=== PATIENT | female | born 2005 | race Caucasian/White ===

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

== ENCOUNTER 2024-02-27 15:56 | Emergency (ER) | payer MEDICAID ==
[2024-02-27 16:08] VITALS: TEMP 97.1
--- NOTE | 2024-02-27 16:41 | ERPHSYRPT ---
- History of Present Illness Time Seen by Provider: 02/27/24 16:38 Historian: patient Exam Limitations: no limitations Patient Subjective Stated Complaint: Pt states "I was at work and I doubled over in pain. I have pain in my right upper belly." Triage Nursing Assessment: Pt presnted alert and oriented X 3, skin wpd. Pt ambulates with an upright steady gait, able to speak in clear full sentences. PT resting comfortably on the bed. Physician History: 18-year-old female presents to our ED for evaluation of right upper quadrant pain. Patient states she developed right upper quadrant pain while at work. Pain described as an ache that was localized. Pain tends to involve the epigastric area as well. No trauma no fever. Gallbladder intact. No history of the same. No nausea no vomiting no diarrhea no rash. Patient otherwise feels well. Patient states she has breast-feeds and will only take Tylenol for pain control. Patient voices no other complaints or concerns at this time. Portions of this note were created with voice recognition technology. There may be grammatical, spelling, punctuation or sound alike errors Timing/Duration: today Activities at Onset: none Quality: aching Abdominal Pain Onset Location: RUQ Pain Radiation: no radiation Severity of Pain-Max: moderate Severity of Pain-Current: moderate Modifying Factors: Improves With: nothing Associated Symptoms: denies symptoms Previous symptoms: no prior history, same symptoms as today Allergies/Adverse Reactions: No Known Drug Allergies Allergy (Verified 12/02/23 08:08) Home Medications: Pnv No.103/Folic/Om3s/Fish Oil [ Gummies] 1 each PO DAILY 12/29/23 [History] Hx Tetanus, Diphtheria Vaccination/Date Given: Yes Hx Influenza Vaccination/Date Given: No Hx Pneumococcal Vaccination/Date Given: No Travel Risk - International Travel Have you traveled outside of the country in past 3 weeks: No - Emerging Infectious Disease Are you exhibiting symptoms associated with any current EIDs: No - Review of Systems Constitutional: No Symptoms, No Fever, No Chills Eyes: No Symptoms Ears, Nose, & Throat: No Symptoms Respiratory: No Symptoms, No Cough, No Dyspnea Cardiac: No Symptoms, No Chest Pain, No Edema, No Syncope Abdominal/Gastrointestinal: No Symptoms, No Abdominal Pain, No Nausea, No Vomiting, No Diarrhea Genitourinary Symptoms: No Symptoms, No Dysuria Musculoskeletal: No Symptoms, No Back Pain, No Neck Pain Skin: No Symptoms, No Rash Neurological: No Symptoms, No Dizziness, No Focal Weakness, No Sensory Changes Psychological: No Symptoms Endocrine: No Symptoms Hematologic/Lymphatic: No Symptoms Immunological/Allergic: No Symptoms All Other Systems: Reviewed and Negative - Past Medical History Pertinent Past Medical History: Yes Neurological History: No Pertinent History ENT History: No Pertinent History Cardiac History: No Pertinent History Respiratory History: No Pertinent History Endocrine Medical History: No Pertinent History Musculoskeletal History: No Pertinent History GI Medical History: GERD History: Other Psycho-Social History: Depression Female Reproductive Disorders: No Pertinent History Other Medical History: UTI, yeast infections FREQUENTLY. dEPRESSION WITH THIS PRGNANCY - Past Surgical History Past Surgical History: Yes Neuro Surgical History: No Pertinent History Cardiac: No Pertinent History Gastrointestinal: No Pertinent History Genitourinary: No Pertinent History Musculoskeletal: No Pertinent History Female Surgical History: No Pertinent History Other Surgical History: upper endoscopy - Female History Hx Last Menstrual Period: unknown Hx Now: No - Social History Smoking Status: Never smoker Exposure to second hand smoke: No Drug Use: none Patient Lives Alone: No - Social Determinants of Health Will the patient participate in the screening: Yes Do you worry about a steady place to live?: No Do you have any problems with any of the following?: No known problems In the past 12 months,have you had to go without utilities?: No Transportation Issues: No Has anyone in your support network made you feel unsafe?: No Have you or anyone in your house had to go without enough: No - Nursing Vital Signs Nursing Vital Signs: Initial Vital Signs Temperature 97.1 F 02/27/24 16:04 Pulse Rate 96 H 02/27/24 16:04 Respiratory Rate 20 02/27/24 16:04 Blood Pressure 130/85 02/27/24 16:04 O2 Sat by Pulse Oximetry 99 02/27/24 16:04 Pain Scale Pain Intensity 0 - Physical Exam General Appearance: no apparent distress, alert Eye Exam: PERRL/EOMI, eyes nml inspection Ears, Nose, Throat Exam: normal ENT inspection, pharynx normal, moist mucous membranes Neck Exam: normal inspection, non-tender, supple, full range of motion Respiratory Exam: normal breath sounds, lungs clear, airway intact, No respiratory distress Cardiovascular Exam: regular rate/rhythm, normal heart sounds, normal peripheral pulses Gastrointestinal/Abdomen Exam: soft, tenderness (Right upper quadrant tenderness palpation. Epigastric tenderness), No mass Back Exam: normal inspection, normal range of motion, No CVA tenderness, No vertebral tenderness Extremity Exam: normal inspection, normal range of motion, pelvis stable Neurologic Exam: alert, oriented x 3, cooperative, normal mood/affect, sensation nml, No motor deficits Skin Exam: normal color, warm, dry Lymphatic Exam: No adenopathy SpO2 Interpretation: normal SpO2: 99 O2 Delivery: Room Air - Course Nursing assessment & vital signs reviewed: Yes - Radiology Ultrasound Exam Gallbladder Ultrasound: gall bladder stones (Normal pancreas normal hepatic vein normal liver common bile duct measures 0.4 cm) Ordered Tests: Active Orders 24 hr Category Date Time Status IV Insertion STAT Care 02/27/24 16:33 Active ABDOMEN AND PELVIS W/0 CONTRAS [CT] Stat Exams 02/27/24 16:34 Taken GALLBLADDER [US] Stat Exams 02/27/24 16:33 Taken CBC W DIFF Stat Lab 02/27/24 16:45 Completed CMP Stat Lab 02/27/24 16:45 Completed HCG QUALITATIVE, URINE Stat Lab 02/27/24 16:08 Completed LIPASE Stat Lab 02/27/24 16:45 Completed UA W/RFX UR CULTURE Stat Lab 02/27/24 16:08 Completed Medication Summary Generic Name Dose Route Start Last Admin Trade Name Freq PRN Reason Stop Dose Admin Hydrocodone Bitart/Acetaminophen 4 tab 02/27/24 19:46 Hydrocodone/Apap 5/325 1 Tab Tablet PO 03/03/24 19:45 Q4H PRN PRN PAIN Sodium Chloride 1,000 mls @ 100 mls/hr 02/27/24 16:45 02/27/24 17:08 Sodium Chloride 0.9% 1000 Ml IV 03/28/24 16:44 100 mls/hr .Q10H CHAS Administration Discontinued Medications Generic Name Dose Route Start Last Admin Trade Name Freq PRN Reason Stop Dose Admin Acetaminophen 975 mg 02/27/24 16:39 02/27/24 17:07 Acetaminophen 325 Mg Tablet PO 02/27/24 16:40 975 mg STAT ONE Administration Acetaminophen Confirm 02/27/24 17:04 Acetaminophen 325 Mg Tablet Administered 02/27/24 17:05 Dose 975 mg .ROUTE .STK-MED ONE Amoxicillin/Clavulanate Potassium 875 mg 02/27/24 17:58 02/27/24 18:08 Amox Tr/Potassium Clavulanate 875 Mg Tablet PO 02/27/24 17:59 Not Given STAT ONE Lab/Rad Data: Laboratory Result Diagrams 02/27/24 16:45 02/27/24 16:45 Laboratory Results 02/27/24 02/27/24 02/27/24 Range/Units 16:45 16:45 16:08 WBC 9.2 (3.98-10.04) x10^3/uL RBC 4.86 (3.93-5.22) x10^6/uL Hgb 12.7 (11.2-15.7) g/dL Hct 40.2 (34.1-44.9) % MCV 82.7 (79.4-94.8) fL MCH 26.1 (25.6-32.2) pg MCHC 31.6 L (32.2-35.5) g/dL RDW 17.8 H (11.7-14.4) % Plt Count 308 (182-369) x10^3/uL MPV 9.7 (9.4-12.3) fL Gran % 69.6 (34.0-71.1) % Immature Gran % (Auto) 0.4 (0.001-0.429) % Nucleat RBC Rel Count 0.0 (0.00-0.2) % Eos # (Auto) 0.15 (0.04-0.36) x10^3/uL Immature Gran # (Auto) 0.04 H (0.001-0.031) x10^3u/L Absolute Lymphs (auto) 2.04 (1.18-3.74) x10^3/uL Absolute Monos (auto) 0.54 (0.24-0.86) x10^3/uL Absolute Nucleated RBC 0.00 (0.00-0.012) x10^3u/L Lymphocytes % 22.1 (19.3-51.7) % Monocytes % 5.9 (4.7-12.5) % Eosinophils % 1.6 (0.7-5.8) % Basophils % 0.4 (0.1-1.2) % Absolute Granulocytes 6.40 H (1.56-6.13) x10^3/uL Basophils # 0.04 (0.01-0.08) x10^3/uL Sodium 139 (135-145) mmol/L Potassium 3.7 (3.5-5.1) mmol/L Chloride 100 (98-107) mmol/L Carbon Dioxide 32 H (22-30) mmol/L Anion Gap 10.8 (5-15) MEQ/L BUN 10 (7-17) mg/dL Creatinine 0.64 (0.52-1.04) mg/dL Estimated GFR 130.5 ML/MIN Glucose 91 (74-106) mg/dL Calcium 9.7 (8.4-10.2) mg/dL Total Bilirubin 0.40 (0.2-1.3) mg/dL AST 40 H (14-36) U/L ALT 10 (0-35) U/L Alkaline Phosphatase 85 (38-126) U/L Serum Total Protein 7.8 (6.3-8.2) g/dL Albumin 4.5 (3.5-5.0) g/dL Lipase 81 (23-300) U/L Urine Color (Yellow) Urine Appearance (Clear) Urine pH (4.6-8.0) Ur Specific Dietrich (1.005-1.030) Urine Protein (Negative) Urine Glucose (UA) (Negative) mg/dL Urine Ketones (Negative) Urine Blood (Negative) Urine Nitrite (Negative) Urine Bilirubin (Negative) Urine Urobilinogen (0.2) mg/dL Ur Leukocyte Esterase (Negative) U Hyaline Cast (Auto) (0-2) /LPF Urine Microscopic RBC (0-5) /HPF Urine Microscopic WBC (0-5) /HPF Ur Epithelial Cells (None Seen) /HPF Urine Bacteria (None Seen) /HPF Urine Culture Reflexed (NO) Urine HCG, Qual NEGATIVE (NEGATIVE) 02/27/24 Range/Units 16:08 WBC (3.98-10.04) x10^3/uL RBC (3.93-5.22) x10^6/uL Hgb (11.2-15.7) g/dL Hct (34.1-44.9) % MCV (79.4-94.8) fL MCH (25.6-32.2) pg MCHC (32.2-35.5) g/dL RDW (11.7-14.4) % Plt Count (182-369) x10^3/uL MPV (9.4-12.3) fL Gran % (34.0-71.1) % Immature Gran % (Auto) (0.001-0.429) % Nucleat RBC Rel Count (0.00-0.2) % Eos # (Auto) (0.04-0.36) x10^3/uL Immature Gran # (Auto) (0.001-0.031) x10^3u/L Absolute Lymphs (auto) (1.18-3.74) x10^3/uL Absolute Monos (auto) (0.24-0.86) x10^3/uL Absolute Nucleated RBC (0.00-0.012) x10^3u/L Lymphocytes % (19.3-51.7) % Monocytes % (4.7-12.5) % Eosinophils % (0.7-5.8) % Basophils % (0.1-1.2) % Absolute Granulocytes (1.56-6.13) x10^3/uL Basophils # (0.01-0.08) x10^3/uL Sodium (135-145) mmol/L Potassium (3.5-5.1) mmol/L Chloride (98-107) mmol/L Carbon Dioxide (22-30) mmol/L Anion Gap (5-15) MEQ/L BUN (7-17) mg/dL Creatinine (0.52-1.04) mg/dL Estimated GFR ML/MIN Glucose (74-106) mg/dL Calcium (8.4-10.2) mg/dL Total Bilirubin (0.2-1.3) mg/dL AST (14-36) U/L ALT (0-35) U/L Alkaline Phosphatase (38-126) U/L Serum Total Protein (6.3-8.2) g/dL Albumin (3.5-5.0) g/dL Lipase (23-300) U/L Urine Color Yellow (Yellow) Urine Appearance Clear (Clear) Urine pH 6.5 (4.6-8.0) Ur Specific Dietrich <=1.005 (1.005-1.030) Urine Protein Negative (Negative) Urine Glucose (UA) Negative (Negative) mg/dL Urine Ketones Negative (Negative) Urine Blood Negative (Negative) Urine Nitrite Negative (Negative) Urine Bilirubin Negative (Negative) Urine Urobilinogen 0.2 (0.2) mg/dL Ur Leukocyte Esterase Negative (Negative) U Hyaline Cast (Auto) NONE SEEN (0-2) /LPF Urine Microscopic RBC 0-2 (0-5) /HPF Urine Microscopic WBC 0-2 (0-5) /HPF Ur Epithelial Cells None Seen (None Seen) /HPF Urine Bacteria None Seen (None Seen) /HPF Urine Culture Reflexed NO (NO) Urine HCG, Qual (NEGATIVE) - Progress Progress: improved Progress Note: Patient is a 18-year-old female presents to our emergency department for evalu ation of epigastric pain right upper quadrant pain. Physical exam significant for right upper quadrant tenderness. Right upper quadrant ultrasound reveals cholelithiasis. No cholecystitis. Lipase normal. CT abdomen pelvis shows fecal stasis otherwise no acute findings. Patient's pain is well-controlled. Patient discharged home with 4 Whitakers tabs. Prescription for Whitakers and Toradol forwarded to patient's pharmacy. Patient given a referral to general surgery. Patient will follow-up tomorrow. No indication for further workup. Patient breast-feeds understands she cannot breast-feed while on or having taken Whitakers. Patient that she is ready for discharge. She voices no other complaints or concerns at this time. Portions of this note were created with voice recognition technology. There may be grammatical, spelling, punctuation or sound alike errors Complexity of problem addressed is moderate acute complicated. No critical care time. Complex of data reviewed and analyzed is moderate. Test ordered chest reviewed results analyzed and correlated clinically with history and physical exam. Risk of complication or risk of morbidity/mortality of patient management is low. Vital stable. Time spent to discharge patient is approximately 20 minutes. Plan of care established for shared decision making. No social determinants of health present impede follow-up. Portions of this note were created with voice recognition technology. There may be grammatical, spelling, punctuation or sound alike errors 02/27/24 19:56 Counseled pt/family regarding: lab results, diagnosis, need for follow-up, rad results - Departure Departure Disposition: Home Clinical Impression: Biliary colic, Gallstones, Fecal stasis Condition: Stable Critical Care Time: No Referrals: TANMAY AUSTIN MD [Primary Care Provider] - Follow up/PCP as directed RUTHIE HENDERSON [ACTIVE STAFF] - Follow up/PCP as directed Additional Instructions: Discharge/Care Plan REGINALDO LIVINGSTON was seen on 02/27/24 in the Emergency Room. The patient was counseled regarding Diagnosis,Lab results, Imaging studies, need for follow up and when to return to the Emergency Room. Prescriptions given: Discharge Note I have spoken with the patient and/or caregivers. I have explained the patient's condition, diagnosis and treatment plan based on the information available to me at this time. I have answered the patient's and/or caregiver's questions and addressed any concerns. The patient and/or caregivers have as good understanding of the patient's diagnosis, condition and treatment plan as can be expected at this point. The vital signs have been stable. The patient's condition is stable and appropriate for discharge from the emergency department. The patient will pursue further outpatient evaluation with the primary care physician or other designated or consulting physician as outlined in the discharge instructions. The patient and/or caregivers are agreeable to this plan of care and follow-up instructions have been explained in detail. The patient and/or caregivers have received these instruction. The patient/and or caregivers are aware that any significant change in condition or worsening of symptoms should prompt an immediate return to this or the closest emergency department or call 911. Prescriptions: Hydrocodone/APAP 5/325 [Whitakers 5/325 mg] 1 each PO Q6H PRN PRN #10 tablet MDD 4 PRN Reason: Pain Ketorolac Trometh 10 mg Tab [TORAdol 10 MG TABLET] 10 mg PO TID 5 Days #15 tablet
[2024-02-27 16:52] LABS: BASOPHIL % 0.4 % (0.1-1.2); Basophil (Absolute #) 0.04 x10^3/uL (0.01-0.08); Eosinophil % 1.6 % (0.7-5.8); Eosinophil (Absolute #) 0.15 x10^3/uL (0.04-0.36); Hematocrit 40.2 % (34.1-44.9); Hemoglobin 12.7 g/dL (11.2-15.7); IMMATURE GRAN # 0.04 x10^3u/L (0.001-0.031); IMMATURE GRAN % 0.4 % (0.001-0.429); Lymphocyte (Absolute #) 2.04 x10^3/uL (1.18-3.74); Lymphocytes % 22.1 % (19.3-51.7); Mean Cell Volume 82.7 fL (79.4-94.8); Mean Corpuscular Hemoglobin 26.1 pg (25.6-32.2); Mean Corpuscular Hgb Concent. 31.6 g/dL (32.2-35.5); Mean Platelet Volume 9.7 fL (9.4-12.3); Monocyte (Absolute #) 0.54 x10^3/uL (0.24-0.86); Monocytes % 5.9 % (4.7-12.5); Neutrophil % 69.6 % (34.0-71.1); Platelet Count 308 x10^3/uL (182-369); Red Blood Count 4.86 x10^6/uL (3.93-5.22); Red Cell Distribution Width 17.8 % (11.7-14.4); White Blood Count 9.2 x10^3/uL (3.98-10.04)
[2024-02-27 16:57] LABS: HCG URINE TEST NEGATIVE (NEGATIVE)
[2024-02-27 17:00] LABS: Appearance Clear (Clear); Bacteria None Seen /HPF (None Seen); Bilirubin Negative (Negative); Blood Negative (Negative); Epithelial Cells None Seen /HPF (None Seen); Glucose, Urine Negative (Negative); Hyaline Casts NONE SEEN /LPF (0-2); Ketones Negative (Negative); Leukocyte Esterase Negative (Negative); Nitrite Negative (Negative); Ph 6.5 (4.6-8.0); Protein,Urine Dip Negative (Negative); RBC 0-2 /HPF (0-5); Specific Gravity <=1.005 (1.005-1.030); Urobilinogen 0.2 mg/dL (0.2); WBC 0-2 /HPF (0-5)
[2024-02-27 17:01] LABS: ADD URINE CULTURE? NO (NO)
[2024-02-27] MEDS ORDERED: Sodium Chloride 0.9% 1000 ML 1,000 ML ONE (17:04)
[2024-02-27] MEDS ORDERED: TYLENOL 325 MG ONE (17:04)
[2024-02-27 17:06] LABS: ALBUMIN 4.5 g/dL (3.5-5.0); ANION GAP 10.8 MEQ/L (5-15); BILIRUBIN,TOTAL 0.4 mg/dL (0.2-1.3); Calcium 9.7 mg/dL (8.4-10.2); Creatinine 1 0.64 mg/dL (0.52-1.04); EST GLOMERULAR FILTRATION RATE 130.5 ML/MIN; Potassium 3.7 mmol/L (3.5-5.1); Total Protein 7.8 g/dL (6.3-8.2)
[2024-02-27] MEDS: TYLENOL 325 MG PO ONE (17:07)
[2024-02-27] MEDS: Sodium Chloride 0.9% 1000 ML 1,000 ML IV SCH (17:08)
[2024-02-27] MEDS: Augmentin 875-125 Tablet PO ONE (18:08)
[2024-02-27 19:35] VITALS: BP 120/69; PULSE 95; RESP 16
[2024-02-27 19:53] VITALS: O2SAT 99
[2024-02-27] MEDS ORDERED: NORCO 5/325 MG ONE (20:08)
[2024-02-27] MEDS: NORCO 5/325 MG PO PRN (20:09)
--- NOTE | 2024-02-27 22:15 | XRAY ---
Indication: Right upper quadrant pain. Multiple contiguous axial images obtained through the abdomen and pelvis without contrast. Comparison: February 28, 2023 Lung bases clear. Heart not enlarged. Noncontrasted stomach and bowel loops appear nonobstructed with normal appendix. There is now moderate diffuse scattered colonic fecal debris throughout. No free fluid/air. Remaining liver, gallbladder, pancreas, spleen, adrenal glands, kidneys, ureters, bladder, uterus, and aorta are unremarkable for noncontrast exam. Osseous structures intact. Impression: Moderate diffuse fecal stasis. Remaining CT abdomen/pelvis without contrast exam is negative.
--- NOTE | 2024-02-27 22:39 | XRAY ---
Indication: Pain. Two-dimensional gallbladder sonogram performed. Comparison: None Visualized gallbladder normally distended with tiny gallstones/gravel in neck of gallbladder. No abnormal gallbladder wall thickening or pericholecystic fluid. Common bile duct measures 4.2 mm. No intrahepatic biliary distention. Remaining visualized liver, pancreas, and right kidney are sonographically unremarkable. Impression: Cholelithiasis without cholecystitis. Comment: Preliminary report was given.
== END 2024-02-27 20:24 | disposition home or self-care (01) ==
LOC: ED 15:56
DX: K80.20 Calculus of gallbladder without cholecystitis without obstruction (principal); R10.11 Right upper quadrant pain; K56.41 Fecal impaction
CPT/HCPCS: 36000; 36415; 74176; 76705; 80053; 81001; 81025; 83690; 85025; 99284; A9270-GY

== ENCOUNTER 2025-02-26 04:03 | Inpatient (IN) | payer OTHER ==
[2025-02-26 04:36] LABS: Glucose, Urine Negative (Negative); Protein,Urine Dip Negative (Negative); RBC 0-2 /HPF (0-5); WBC 0-2 /HPF (0-5)
[2025-02-26 04:37] LABS: AMNISURE TEST RESULTS POSITIVE (NEGATIVE)
[2025-02-26] MEDS ORDERED: Zofran 4 MG/2 ML VIAL IV PRN (04:44)
[2025-02-26] MEDS ORDERED: TYLENOL EXTRA STRENGTH 500 MG PO PRN (04:44)
[2025-02-26] MEDS ORDERED: XYLOCAINE 1% HCL 20 ML MDV IJ PRN (04:44)
[2025-02-26 04:45] LABS: Amphetamine,Urine NEGATIVE (NEGATIVE); Barbiturate,Urine NEGATIVE (NEGATIVE); Benzodiazepine,Urine NEGATIVE (NEGATIVE); Cocaine,Urine NEGATIVE (NEGATIVE); Methadone,Urine NEGATIVE (NEGATIVE); Opiate,Urine NEGATIVE (NEGATIVE); PCP,Urine NEGATIVE (NEGATIVE); THC,Urine NEGATIVE (NEGATIVE)
[2025-02-26 05:06] LABS: BASOPHIL % 0.6 % (0.1-1.2); Basophil (Absolute #) 0.07 x10^3/uL (0.01-0.08); Eosinophil (Absolute #) 0.49 x10^3/uL (0.04-0.36); Hematocrit 35.3 % (34.1-44.9); Hemoglobin 11.4 g/dL (11.2-15.7); IMMATURE GRAN # 0.06 x10^3u/L (0.001-0.031); IMMATURE GRAN % 0.5 % (0.001-0.429); Lymphocyte (Absolute #) 2.88 x10^3/uL (1.18-3.74); Mean Corpuscular Hemoglobin 27.5 pg (25.6-32.2); Mean Corpuscular Hgb Concent. 32.3 g/dL (32.2-35.5); Monocyte (Absolute #) 0.85 x10^3/uL (0.24-0.86); NUCLEATED RBC # 0.00 x10^3u/L (0.00-0.012); NUCLEATED RBC % 0.0 % (0.00-0.2); Platelet Count 232 x10^3/uL (182-369); Red Blood Count 4.15 x10^6/uL (3.93-5.22); White Blood Count 11.7 x10^3/uL (3.98-10.04)
[2025-02-26 05:44] LABS: ABO TYPING AB; RH TYPING POSITIVE
[2025-02-26] MEDS ORDERED: Lactated Ringers 1,000 ML IV ONE ×2 (06:45→07:51)
[2025-02-26] MEDS ORDERED: PITOCIN 30 UNITS/ LR 500 ML 500 ML IV ONE (06:45)
[2025-02-26] MEDS: Lactated Ringers 1,000 ML IV SCH (06:49)
[2025-02-26] MEDS: PITOCIN 30 UNITS/ LR 500 ML 30 UNITS/500 ML PLAST..BAG IV SCH (06:50)
[2025-02-26] MEDS ORDERED: Ephedrine Sulfate 50 MG/ML IV PRN (07:51)
[2025-02-26] MEDS: FENTANYL 2 MCG-BUPIV 0.125%-NS 250 ML Epidur 250 ML EPIDURAL SCH (07:58)
[2025-02-26 13:53] LABS: Glucose, Urine Negative (Negative); Protein,Urine Dip Negative (Negative); RBC 0-2 /HPF (0-5); WBC 0-2 /HPF (0-5)
[2025-02-26] MEDS ORDERED: CORTISONE 1% CREAM TP PRN (15:46)
[2025-02-26] MEDS ORDERED: Anucort-HC SUPPOSITORY PR PRN (15:46)
[2025-02-26] MEDS ORDERED: TUCKS TP PRN (15:46)
[2025-02-26] MEDS ORDERED: Dulcolax 10 MG SUPP PR PRN (15:46)
[2025-02-26] MEDS ORDERED: Mylicon 80MG PO PRN (15:46)
[2025-02-26] MEDS ORDERED: Dermoplast Spray ONE (21:25)
[2025-02-26] MEDS ORDERED: Docusate Sodium 100 MG ONE (21:25)
[2025-02-26] MEDS: Docusate Sodium 100 MG PO SCH (21:26)
[2025-02-26] MEDS: Dermoplast Spray TP PRN (21:26)
[2025-02-26] MEDS ORDERED: MOTRIN 400 MG ONE (22:56)
[2025-02-26] MEDS: MOTRIN 400 MG PO PRN (22:57)
[2025-02-27 05:56] LABS: BASOPHIL % 0.6 % (0.1-1.2); Basophil (Absolute #) 0.09 x10^3/uL (0.01-0.08); Eosinophil (Absolute #) 0.51 x10^3/uL (0.04-0.36); Hematocrit 35.5 % (34.1-44.9); Hemoglobin 11.2 g/dL (11.2-15.7); IMMATURE GRAN # 0.06 x10^3u/L (0.001-0.031); IMMATURE GRAN % 0.4 % (0.001-0.429); Lymphocyte (Absolute #) 2.94 x10^3/uL (1.18-3.74); Mean Corpuscular Hemoglobin 26.8 pg (25.6-32.2); Mean Corpuscular Hgb Concent. 31.5 g/dL (32.2-35.5); Monocyte (Absolute #) 0.95 x10^3/uL (0.24-0.86); NUCLEATED RBC # 0.00 x10^3u/L (0.00-0.012); NUCLEATED RBC % 0.0 % (0.00-0.2); Platelet Count 244 x10^3/uL (182-369); Red Blood Count 4.18 x10^6/uL (3.93-5.22); White Blood Count 14.1 x10^3/uL (3.98-10.04)
[2025-02-27] MEDS ORDERED: MOTRIN 400 MG ONE (08:21)
[2025-02-27] MEDS: FERREX 150 PO SCH (11:02)
[2025-02-27] MEDS: LANSINOH 40 GM TOP PRN (23:31)
[2025-02-28 03:04] VITALS: RESP 16; O2SAT 100
[2025-02-28] MEDS: Adacel Vial IM ONE (04:38)
[2025-02-28 08:13] VITALS: BP 91/55; PULSE 82; TEMP 98.2
--- NOTE | 2025-02-28 08:29 | PCM.DS ---
Discharge Summary Date of Admission: 02/26/25 04:03 Admitting Physician: JESSICA BERNAL Consults: Consults on Case 02/26/25 18:10 Navigation ONCE Primary Care Provider: TANMAY AUSTIN Allergies Allergies No Known Drug Allergies Allergy (Verified 12/02/23 08:08) OB Hospital Summary - Hospital Course Reason for Admission: Onset of Labor Infant Delivery Method: Spontaneous Vaginal Episiotomy Description: None Other Post Procedures: None Complications: None OB Discharge Diagnosis: IUP at Term Delivery [place] Baby: Male - Vitals & Intake/Output Vital Signs: Vital Signs Temperature 98.2 F 02/28/25 07:36 Pulse Rate 82 02/28/25 07:36 Respiratory Rate 16 02/28/25 07:36 Blood Pressure 91/55 02/28/25 07:36 O2 Sat by Pulse Oximetry 100 02/28/25 02:00 Intake & Output: Intake & Output 02/25/25 02/26/25 02/27/25 02/28/25 11:59 11:59 11:59 11:59 Intake Total 2000 Output Total 600 800 Balance -600 1200 Weight 76.657 kg - Lab Result Diagrams: 02/27/25 04:14 Lab Results-Last 24 Hrs: Lab Results-Last 24 Hours 02/26/25 Range/Units 04:55 RPR Non Reactive (Non Reactive) - Procedures and Test Procedures and Tests throughout Hospitalization: Therapy Orders & Screens 02/26/25 15:23 Standby ROUTINE Comment: Diagnosis: TERM , SROM OB Discharge Exam General Appearance: no apparent distress Neurologic Exam: alert, oriented x 3 Skin Exam: normal color, warm, dry Respiratory Exam: normal breath sounds, lungs clear, No respiratory distress Cardiovascular Exam: regular rate/rhythm, normal heart sounds Gastrointestinal/Abdomen Exam: soft Extremity Exam: normal inspection, normal range of motion - Discharge Disposition: Home, Self-Care Condition: Stable Prescriptions: Continue Pnv No.103/Folic/Om3s/Fish Oil [ Gummies] 1 each PO DAILY Ferrous Sulfate [Ferosul] 325 mg PO DAILY Follow up with: JESSICA BERNAL MD [ACTIVE STAFF, FAMILY PRACTICE] - 6 weeks
[2025-03-04 19:57] LABS: RPR Non Reactive (Non Reactive)
== END 2025-02-28 11:35 | disposition home or self-care (01) | DRG 807 ==
LOC: OB 04:03 → OBSVTOIN 04:03
PROVIDERS: ADMIT Family Medicine; ATTEND Family Medicine
PROC: 10E0XZZ Delivery of Products of Conception, External Approach (ICD-10-PCS; principal; 2025-02-26)
DX: O70.0 First degree perineal laceration during delivery (principal); Z37.0 Single live birth; Z3A.38 38 weeks gestation of pregnancy

== ENCOUNTER 2025-03-04 06:45 | Emergency (ER) | payer OTHER ==
[2025-03-04 07:09] VITALS: RESP 18; TEMP 97.8
--- NOTE | 2025-03-04 07:18 | ERPHSYRPT ---
- History of Present Illness Time Seen by Provider: 03/04/25 07:05 Source: patient Exam Limitations: no limitations Patient Subjective Stated Complaint: abdominal pain 6 days post Triage Nursing Assessment: pt walked into ED she is 6 days , she woke up to sharp pains in her abdomen this morning, denies any more severe bleeding this is her 2nd and she saysshe never has a pain like this. patient is alert nad orientedx4, able to ambulate by self, gait is steady. Physician History: This is a 19-year-old white female patient who is 6 days from a vaginal delivery with a complaint of right lower quadrant abdominal cramping. She has had cramping in the last several days but this morning, the cramping was very severe. The cramping has let up upon arrival to the emergency department. Patient is breast-feeding. Patient's primary care provider is Dr. Olsen. The patient arrives by private vehicle. Patient has not had a fever. She has had no nausea vomiting or diarrhea symptoms. Timing/Duration: today Quality: cramping Onset Location: RLQ Pain Radiation: none Severity of Pain-Max: moderate Severity of Pain-Current: mild Sexual intercourse history: non-contributory Modifying Factors: Improves With: nothing Associated Symptoms: abdominal pain (Right lower quadrant cramping) Allergies/Adverse Reactions: No Known Drug Allergies Allergy (Verified 03/04/25 06:57) Home Medications: Pnv No.103/Folic/Om3s/Fish Oil [ Gummies] 1 each PO DAILY 12/29/23 [History] Ferrous Sulfate [Ferosul] 325 mg PO DAILY 02/26/25 [History] Hx Tetanus, Diphtheria Vaccination/Date Given: Yes Hx Influenza Vaccination/Date Given: No Hx Pneumococcal Vaccination/Date Given: No Travel Risk - International Travel Have you traveled outside of the country in past 3 weeks: No - Emerging Infectious Disease Are you exhibiting symptoms associated with any current EIDs: No - Review of Systems Constitutional: No Symptoms Eyes: No Symptoms Ears, Nose, & Throat: No Symptoms Respiratory: No Symptoms Cardiac: No Symptoms Abdominal/Gastrointestinal: Abdominal Pain (Right lower quadrant cramping) Genitourinary Symptoms: No Symptoms Musculoskeletal: No Symptoms Skin: No Symptoms Neurological: No Symptoms Psychological: No Symptoms Endocrine: No Symptoms Hematologic/Lymphatic: No Symptoms Immunological/Allergic: No Symptoms All Other Systems: Reviewed and Negative - Past Medical History Pertinent Past Medical History: Yes Neurological History: No Pertinent History ENT History: No Pertinent History Cardiac History: No Pertinent History Respiratory History: No Pertinent History Endocrine Medical History: No Pertinent History Musculoskeletal History: No Pertinent History GI Medical History: GERD History: Other Psycho-Social History: Depression Female Reproductive Disorders: No Pertinent History Other Medical History: UTI, yeast infections FREQUENTLY. mild DEPRESSION WITH THIS PRGNANCY - Past Surgical History Past Surgical History: Yes Neuro Surgical History: No Pertinent History Cardiac: No Pertinent History Gastrointestinal: No Pertinent History Genitourinary: No Pertinent History Musculoskeletal: No Pertinent History Female Surgical History: No Pertinent History Other Surgical History: upper endoscopy - Female History Hx Last Menstrual Period: unknown Hx Now: No - Social History Smoking Status: Never smoker Exposure to second hand smoke: No Drug Use: none - Social Determinants of Health Will the patient participate in the screening: Yes Do you worry about a steady place to live?: No Do you have any problems with any of the following?: No known problems In the past 12 months,have you had to go without utilities?: No Transportation Issues: No Has anyone in your support network made you feel unsafe?: No Have you or anyone in your house had to go w/o enough food: No - Nursing Vital Signs Nursing Vital Signs: Initial Vital Signs O2 Sat by Pulse Oximetry 99 03/04/25 06:59 Pain Scale Pain Intensity 9 - Physical Exam General Appearance: no apparent distress, alert, anxiety Eye Exam: PERRL/EOMI, eyes nml inspection Ears, Nose, Throat Exam: normal ENT inspection, moist mucous membranes Neck Exam: normal inspection, non-tender, supple, full range of motion Respiratory Exam: normal breath sounds, lungs clear, airway intact, No chest tenderness, No respiratory distress Cardiovascular Exam: regular rate/rhythm, normal heart sounds, normal peripheral pulses Gastrointestinal/Abdomen Exam: soft, normal bowel sounds, tenderness (Right lower quadrant to palpation), guarding (Right lower quadrant to palpation), No rebound Pelvic Exam: not done Rectal Exam: not done Back Exam: normal inspection, normal range of motion, No CVA tenderness, No vertebral tenderness Extremity Exam: normal inspection, normal range of motion, pelvis stable Neurologic Exam: alert, oriented x 3, cooperative, director of investigations II-XII nml as tested, nml cerebellar function, nml station & gait, sensation nml Skin Exam: normal color, warm, dry Lymphatic Exam: No adenopathy SpO2 Interpretation: normal SpO2: 98 O2 Delivery: Room Air - Course Nursing assessment & vital signs reviewed: Yes Ordered Tests: Active Orders 24 hr Category Date Time Status IV Insertion STAT Care 03/04/25 07:17 Active ABDOMEN AND PELVIS W/0 CONTRAS [CT] Stat Exams 03/04/25 07:17 Taken AMYLASE Stat Lab 03/04/25 07:40 Completed CBC W DIFF Stat Lab 03/04/25 07:40 Completed CMP Stat Lab 03/04/25 07:40 Completed CULTURE,URINE Stat Lab 03/04/25 07:17 Received LIPASE Stat Lab 03/04/25 07:40 Completed UA W/RFX UR CULTURE Stat Lab 03/04/25 07:17 Completed Medication Summary Discontinued Medications Generic Name Dose Route Start Last Admin Trade Name Freq PRN Reason Stop Dose Admin Sodium Chloride Confirm 03/04/25 07:13 Sodium Chloride 0.9% 1000 Ml Administered 03/04/25 07:14 Dose 1,000 mls @ ud .ROUTE .STK-MED ONE Sodium Chloride 1,000 mls @ 999 mls/hr 03/04/25 07:18 03/04/25 07:20 Sodium Chloride 0.9% 1000 Ml IV 03/04/25 08:18 999 mls/hr .Q1H1M STA Administration Lab/Rad Data: Laboratory Result Diagrams 03/04/25 07:40 03/04/25 07:40 Laboratory Results 03/04/25 03/04/25 03/04/25 Range/Units 07:40 07:40 07:17 WBC 8.1 (3.98-10.04) x10^3/uL RBC 4.70 (3.93-5.22) x10^6/uL Hgb 12.6 (11.2-15.7) g/dL Hct 41.1 (34.1-44.9) % MCV 87.4 (79.4-94.8) fL MCH 26.8 (25.6-32.2) pg MCHC 30.7 L (32.2-35.5) g/dL RDW 18.6 H (11.7-14.4) % Plt Count 288 (182-369) x10^3/uL MPV 9.6 (9.4-12.3) fL Gran % 62.2 (34.0-71.1) % Immature Gran % (Auto) 0.5 H (0.001-0.429) % Nucleat RBC Rel Count 0.0 (0.00-0.2) % Eos # (Auto) 0.44 H (0.04-0.36) x10^3/uL Immature Gran # (Auto) 0.04 H (0.001-0.031) x10^3u/L Absolute Lymphs (auto) 2.07 (1.18-3.74) x10^3/uL Absolute Monos (auto) 0.45 (0.24-0.86) x10^3/uL Absolute Nucleated RBC 0.00 (0.00-0.012) x10^3u/L Lymphocytes % 25.6 (19.3-51.7) % Monocytes % 5.6 (4.7-12.5) % Eosinophils % 5.4 (0.7-5.8) % Basophils % 0.7 (0.1-1.2) % Absolute Granulocytes 5.04 (1.56-6.13) x10^3/uL Basophils # 0.06 (0.01-0.08) x10^3/uL Sodium 137 (135-145) mmol/L Potassium 4.0 (3.5-5.1) mmol/L Chloride 106 (98-107) mmol/L Carbon Dioxide 26 (22-30) mmol/L Anion Gap 9.0 (5-15) MEQ/L BUN 12 (7-17) mg/dL Creatinine 0.63 (0.52-1.04) mg/dL Estimated GFR 130.2 ML/MIN Glucose 74 (74-106) mg/dL Calcium 9.1 (8.4-10.2) mg/dL Total Bilirubin < 0.10 L (0.2-1.3) mg/dL AST 19 (14-36) U/L ALT 9 (0-35) U/L Alkaline Phosphatase 122 (38-126) U/L Serum Total Protein 6.8 (6.3-8.2) g/dL Albumin 3.6 (3.5-5.0) g/dL Amylase 75 (30-110) U/L Lipase 47 (23-300) U/L Urine Color Yellow (Yellow) Urine Appearance Clear (Clear) Urine pH 7.5 (4.6-8.0) Ur Specific [place] <=1.005 (1.005-1.030) Urine Protein Negative (Negative) Urine Glucose (UA) Negative (Negative) mg/dL Urine Ketones Negative (Negative) Urine Blood Small A (Negative) Urine Nitrite Negative (Negative) Urine Bilirubin Negative (Negative) Urine Urobilinogen 0.2 (0.2) mg/dL Ur Leukocyte Esterase Trace A (Negative) U Hyaline Cast (Auto) NONE SEEN (0-2) /LPF Urine Microscopic RBC 0-2 (0-5) /HPF Urine Microscopic WBC 0-2 (0-5) /HPF Ur Epithelial Cells None Seen (None Seen) /HPF Urine Bacteria None Seen (None Seen) /HPF Urine Culture Reflexed YES (NO) - Progress Progress: improved, re-examined Air Movement: good Progress Note: 03/04/25 07:15 My medical decision making and the assignment of moderate complexity of this patient's medical issue today is based on review of the patient's past medical history, reviewed patient's medication list, review of the patient's drug allergy list, history of present illness and physical findings on examination. The workup in this patient includes placement of intravenous line, CBC, CMP, urinalysis, amylase, lipase, CT scan of the abdomen pelvis without contrast. Differential diagnosis includes uterine cramping, acute appendicitis, pancreatitis, colitis 03/04/25 08:51 I interpreted the patient's laboratory data results. Based on the laboratory data results, there are no acute, emergent medical issues. The CT scan of the abdomen pelvis without contrast was interpreted by the radiologist and I reviewed the impression. The pression states moderate diffuse fecal stasis. Normal appendix. Uterus with endometrial thickening. Blood Culture(s) Obtained: No Antibiotics given: No Counseled pt/family regarding: lab results, diagnosis, need for follow-up, rad results Medical Desision Making - Diagnostic Testing Diagnostic test were ordered, analyzed, and reviewed by me: Yes Radiological Interpretation: Reviewed by me, Teleradiologist Report - Risk of complications Low Risk: Low risk of morbidity from additional dx testing or treatment - Departure Departure Disposition: Home Clinical Impression: Constipation Condition: Stable Critical Care Time: No Referrals: GEOVANNA,TANMAY EVE, MD [Primary Care Provider, [facility]] - Follow up/PCP as directed Additional Instructions: Drink plenty of fluids. May use [id number] MiraLAX, glycerin suppositories, fleets enemas to help with relieving constipation. Call your storage solutions architect and primary care provider today, 03/04/2025, to make arrangements for follow-up appointment for further evaluation management.
[2025-03-04 07:38] LABS: Glucose, Urine Negative (Negative); Protein,Urine Dip Negative (Negative); RBC 0-2 /HPF (0-5); WBC 0-2 /HPF (0-5)
[2025-03-04 07:43] LABS: BASOPHIL % 0.7 % (0.1-1.2); Basophil (Absolute #) 0.06 x10^3/uL (0.01-0.08); Eosinophil (Absolute #) 0.44 x10^3/uL (0.04-0.36); Hematocrit 41.1 % (34.1-44.9); Hemoglobin 12.6 g/dL (11.2-15.7); IMMATURE GRAN # 0.04 x10^3u/L (0.001-0.031); IMMATURE GRAN % 0.5 % (0.001-0.429); Lymphocyte (Absolute #) 2.07 x10^3/uL (1.18-3.74); Mean Corpuscular Hemoglobin 26.8 pg (25.6-32.2); Mean Corpuscular Hgb Concent. 30.7 g/dL (32.2-35.5); Monocyte (Absolute #) 0.45 x10^3/uL (0.24-0.86); NUCLEATED RBC # 0.00 x10^3u/L (0.00-0.012); NUCLEATED RBC % 0.0 % (0.00-0.2); Platelet Count 288 x10^3/uL (182-369); Red Blood Count 4.70 x10^6/uL (3.93-5.22); White Blood Count 8.1 x10^3/uL (3.98-10.04)
[2025-03-04 07:55] LABS: Calcium 9.1 mg/dL (8.4-10.2); Carbon Dioxide 26 mmol/L (22-30); Creatinine 1 0.63 mg/dL (0.52-1.04); EST GLOMERULAR FILTRATION RATE 130.2 ML/MIN; Glucose 74 mg/dL (74-106); Potassium 4.0 mmol/L (3.5-5.1); SGOT/AST 19 U/L (14-36); SGPT/ALT 9 U/L (0-35); Total Protein 6.8 g/dL (6.3-8.2)
--- NOTE | 2025-03-04 09:14 | XRAY ---
Indication: Right lower quadrant pain. 6 days. Multiple contiguous axial images obtained through the abdomen and pelvis without contrast. Comparison: February 27, 2024. Lung bases clear. Heart not enlarged. Noncontrasted stomach and bowel loops appear nonobstructed again with normal appendix. There remains moderate diffuse scattered colonic fecal debris throughout. Uterus now markedly enlarged presumed related to recent . No free fluid/air. Remaining liver, gallbladder, pancreas, spleen, adrenal glands, kidneys, ureters, bladder, and aorta are unremarkable for noncontrast exam. Osseous structures intact. Impression: 1. New enlarged uterus presumed related to recent . 2. Again moderate diffuse fecal stasis. 3. Remaining CT abdomen/pelvis without contrast exam continues to be negative.
[2025-03-04 09:27] VITALS: BP 104/66; PULSE 78; O2SAT 99
== END 2025-03-04 09:27 | disposition home or self-care (01) ==
LOC: ED 06:45
DX: K59.00 Constipation, unspecified (principal); R10.31 Right lower quadrant pain; Z79.899 Other long term (current) drug therapy